=== PATIENT | female | born 1995 | race Caucasian/White ===

== ENCOUNTER 2020-01-30 23:48 | Emergency (ER) | payer OTHER, SELFPAY ==
--- NOTE | ~2020-01-30 | CT_ITS ---
EXAMINATION: CTA brain carotid EXAM DATE: 01/30/2020 22:22 INDICATION: Headache and right-sided neck pain. TECHNIQUE: Noncontrast head CT. Spiral CTA of the carotid arteries was performed with intravenous i njection 100 cc of Omnipaque 350. Axial, coronal, sagittal reformatted images reviewed. Additional r eformatted images created on dedicated 3-D workstation. NASCET comparable standard used to assess th e degree of arterial stenosis. Spiral CT angiogram cerebral arteries performed with the same intrave nous injection of contrast. Source images of the brain CTA transferred to dedicated workstation for 3 -D rotational image creation. Coronal, sagittal maximum intensity pixel images also reviewed. The d ose-length product (DLP) for this examination was 1579.53 mGy-cm. The exposure was tailored accordi ng to patient size, and iterative reconstruction (ASIR) was used as additional dose reduction techniq ue. There is no prior study for comparison. FINDINGS: The carotid arteries are normal. The vertebral arteries are codominant. There is no caroti d or vertebral basilar arterial dissection or fibromuscular dysplasia. There are no cerebral artery a neurysms. There is symmetric cerebral artery arborization. The sagittal, transverse and sigmoid sinus es enhance normally, no venous sinus thrombosis. Internal cerebral veins also enhance normally. There is no acute intraparenchymal hemorrhage. No evidence of intraparenchymal brain mass lesion. N o evidence of acute infarction. There is no mass effect or midline shift. There is no obstructive hyd rocephalus suspected. There are no extra-axial collections. There are no calvarial acute fractures. There are no areas of abnormal enhancement on the postcontrast images. Small left maxillary sinus mucous retention cyst. IMPRESSION: 1. No cervical arterial dissection or cerebral artery aneurysm. 2. Normal carotid arteries bilaterally. Reviewed, dictated and finalized at location A. SURGEON
[2020-01-30 21:03] VITALS: BP 121/57; PULSE 90; RESP 18; TEMP 37.4; O2SAT 99
[2020-01-30 21:20] LABS: Basophils Percent Auto 0.4 % (0.2-1.2); Eosinophils Absolute Auto 0.3 K/mm3 (0-0.3); Eosinophils Percent Auto 3.3 % (0-4.4); Hematocrit 38.3 % (37.0-47.0); Hemoglobin 13.3 g/dL (12.0-15.0); Immature Granulocyte Absolute 0.01 K/mm3 (0.00-0.031); Immature Granulocyte Percent A 0.1 % (0-0.5); Lymphocytes Absolute Auto 3.36 K/mm3 (0.9-3.2); Lymphocytes Percent Auto 36.2 % (18.3-44.2); Mean Corpuscular HGB Conc 34.7 g/dl (32-36); Mean Corpuscular Hemoglobin 30.6 pg (26-34); Mean Platelet Volume 10.1 fl (7.4-10.4); Monocytes Absolute Auto 0.7 K/mm3 (0.1-0.6); Neutrophils Absolute Auto 4.9 K/mm3 (1.3-6.7); Platelet Count Result 233 k/mm3 (150-375); Red Blood Count 4.35 M/mm3 (4.2-5.4); Red Cell Distribution Width 11.8 % (11.5-14.5); White Blood Count 9.3 K/mm3 (4.5-10.0)
[2020-01-30 21:32] LABS: Anion Gap 9 mmol/L (8-16); Blood Urea Nitrogen 16 mg/dL (7-17); Calcium 9.7 mg/dL (8.4-10.2); Carbon Dioxide 28 mmol/L (22-30); Chloride 103 mmol/L (98-107); Estimated CRCL calculation 77 ml/min; Estimated Glomerular Filt Rate > 60; Glucose 110 mg/dL (65-105); Potassium 3.8 mmol/L (3.4-5.0); Sodium 140 mmol/L (137-145)
--- NOTE | 2020-01-31 00:15 | ED.NECK ---
HPI - Neck Pain/Injury General Chief Complaint: Neck Pain/Injury Stated Complaint: neck pain after popping neck, lightheaded Time Seen by Provider: 01/30/20 23:55 Source: patient Mode of arrival: EMS Limitations: no limitations History of Present Illness HPI Narrative: This patient is a 24 year old female who presents for evaluation of right neck pain . She reports around 8 pm tonight she was popping her neck , and she developed severe right lateral posterior neck pain. She reports severe pain with turning her neck. She initially reported a headache with dizziness. She denies vomiting, numbness, tingling, blurred vision or focal weakness. She has not taken anything for pain. Related Data Allergies Allergy/AdvReac Type Severity Reaction Status Date / Time No Known Allergies Allergy Verified 01/30/20 21:11 Review of Systems Review of Systems: All systems reviewed & are unremarkable except as noted in HPI and below Constitutional: Constitutional: Denies chills and Denies fever(s) Eyes: Eyes: Denies change in vision Gastrointestinal: Gastrointestinal: Denies vomiting Neurologic: Denies vertigo, Reports headache(s), Denies focal weakness, Denies numbness and Denies weakness PMFSH Past Medical History Medical History (Updated 01/31/20 @ 01:27 by Jamilah Purcell MD) Patient denies medical problems Surgical History Surgical History (Updated 01/31/20 @ 00:24 by Jamilah Purcell MD) No significant past surgical history Social History Social History (Updated 01/31/20 @ 00:24 by Jamilah Purcell MD) Smoking status: Never smoker Gender identity (if verbalized by the patient): Female Exam Const: General: no acute distress and alert Orientation/consciousness: patient oriented x3 HENMT: Head: normocephalic and atraumatic Face and sinus: face symmetric Mouth: Yes Normal oral and palatal mucosa present, Yes lip normal and Yes oropharynx normal Eyes: Pupils: Equal, round and reactive pupils present EOM: EOMs intact bilaterally Neck: Neck: no lymphadenopathy and meningismus present Other: TTP along right trapezious, no swelling, she does has pain with turn neck Resp: Effort & Inspection: normal respiratory effort and no retractions Auscultation: clear to auscultation bilaterally Cardio: Rate: regular rate Rhythm: regular rhythm Heart sounds: no murmurs Back/Spine/Pelvis: Cervical Spine: cervical muscular tenderness, pain with cervical ROM and No Cervical spine tenderness Other: in c collar Skin: General skin exam: normal color Rashes: no rashes Neuro: General: patient oriented x3 and moves all extremities Extrem: General: normal to inspection Course Reevaluation(s) Reevaluation #1: PAtient reports she feels better. I discussed CT results are unremarkable. Date: 01/31/20 Time: 01:25 Vital Signs Vital signs: Vital Signs Temperature 99.3 F 01/30/20 21:03 Pulse Rate 90 01/30/20 21:03 Respiratory Rate 18 01/30/20 21:03 Blood Pressure 121/57 L 01/30/20 21:03 Pulse Oximetry 99 01/30/20 21:03 Temperature 99.3 F 01/30/20 21:03 Pulse Rate 82 01/31/20 01:45 Respiratory Rate 18 01/31/20 01:45 Blood Pressure 111/79 01/31/20 01:45 Pulse Oximetry 100 01/31/20 01:45 MDM - Neck Pain/Injury Lab Data Attestation: I reviewed the patient's lab results. Result diagrams: 01/30/20 21:10 01/30/20 21:10 Labs: Lab Results 01/30/20 01/30/20 Range/Units 21:10 21:10 WBC 9.3 (4.5-10.0) K/mm3 RBC 4.35 (4.2-5.4) M/mm3 Hgb 13.3 (12.0-15.0) g/dL Hct 38.3 (37.0-47.0) % MCV 88.0 (80-100) fl MCH 30.6 (26-34) pg MCHC 34.7 (32-36) g/dl RDW 11.8 (11.5-14.5) % Plt Count 233 (150-375) k/mm3 MPV 10.1 (7.4-10.4) fl Immature Gran % (Auto) 0.1 (0-0.5) % Neut % (Auto) 53.0 (45.5-73.1) % Lymph % (Auto) 36.2 (18.3-44.2) % Randall % (Auto) 7.0 (2.6-8.5) % Eos % (Auto) 3.3 (0-4.4) % Ba
[2020-01-31] MEDS: diazePAM (*CRX) 5 MG TABLET PO (00:28)
[2020-01-31] MEDS: KETOROLAC 30 MG/ML VIAL (*BKC) IV PUSH (00:28)
[2020-01-31 01:45] VITALS: BP 111/79; PULSE 82; RESP 18; O2SAT 100
== END 2020-01-31 01:47 | disposition home or self-care (01) ==
PROVIDERS: Emergency Medicine Emergency Medical Services; Emergency Provider General Practice
DX: S16.1XXA Strain of muscle, fascia and tendon at neck level, initial encounter (principal); X50.9XXA Other and unspecified overexertion or strenuous movements or postures, initial encounter
CPT/HCPCS: 36415; 70496; 70498; 80048; 85025; 96374; 99284; A9270; J1885; Q9967

== ENCOUNTER 2025-03-02 14:59 | Emergency (ER) | payer BC, SELFPAY ==
--- NOTE | ~2025-03-02 | US_ITS ---
US OB <=14 wk fetus w TV INDICATION:vaginal bleeding during COMPARISON: None. TECHNIQUE: transvaginal ultrasound of the pelvis was performed. FINDINGS: The uterus measures 9.2 x 4.2 x 5.4 cm. No intrauterine identified. The right ovary measures 1.9 x 1.5 x 1.9 cm. The left ovary measures 2.2 x 1.2 x 2 point cm. The ovaries are normal in appearance. No adnexal masses are seen. No pelvic fluid or mass is seen. IMPRESSION: No intrauterine identified. Correlation with beta-hCG and follow-up with key operator is recommended. Reviewed, dictated and finalized at location S. D DEVELOPMENT DIRECTOR IMPRESSION: No intrauterine identified. Correlation with beta-hCG and follow-up w [facility] key operator is recommended.
[2025-03-02 15:25] VITALS: BP 116/67; PULSE 76; RESP 16; TEMP 36.8; O2SAT 100
--- OUTSIDE RECORDS SUMMARY | 2025-03-02 17:42 | XMS_ITS | Clinical Summary ---
Author Organization [facility] Address [address] [place] [id number] Care Team Providers Care Vision Teacher Name Role Phone Unavailable Primary Care Provider Unavailabl e Social History Tobacco Use Types Packs/Day Years Used Date Smoking Tobacco: Never Assessed Comments Unknown Sex and Gender Information Value Date Recorded Sex Assigned at Not on file Legal Sex Female 8:08 PM CDT Gender Identity Not on file Sexual Orientation Not on file Last Filed Vital Signs Vital Sign Reading Time Taken Comments Blood Pressure 104/72 05/09/2015 3:24 PM ASSEMBLER CAMPER Pulse 85 05/09/2015 3:24 PM ASSEMBLER CAMPER Temperature - - Respiratory Rate - - Oxygen Saturation - - Inhaled Oxygen Concentration - - Weight 54.9 kg (121 lb) 05/09/2015 3:24 PM ASSEMBLER CAMPER Height 157.5 cm (5' 2) 09/23/2014 2:43 PM CDT Body Mass Index 22.13 09/23/2014 2:43 PM CDT Plan of Treatment Health Maintenance Due Date Last Done Comments Cervical Cancer Screening Pap Smear (Age 30 to 64) Every 3 Years 1994 Annual Physical 1997 DTaP, Tdap and Td Vaccines (6 - Tdap) 10/31/2007 10/30/2007, 04/18/1999, 02/11/1996, Additional history exists Hepatitis C 2012 HPV Vaccines (1 - 3-dose SCDM series) 2021 Cervical Cancer Screening Pap with HPV Testing (Age 30 to 64) Every 5 Years 2024 Cervical Cancer Screening with HPV 2024 COVID-19 Vaccine ( season) 2024 Influenza Adult (#1) 2024 04/19/2013, 11/14/20 12 Hepatitis B Vaccines Completed 05/12/1995, 01/07/1995, 1994 Meningococcal Vaccine Aged Out 01/29/2012 No haider fide eligible based on patient's age to complete this topic Hepatitis A Vaccines Aged Out No long er eligible based on patient's age to complete this topic Meningococcal B Vaccine Aged Out No l onger eligible based on patient's age to complete this topic Pneumococcal Vaccine: Pediatrics (0 to 5 Years) and At-Risk Patients (6 to 49 Years) Aged Out No longer eligible based on patient's age to complete this topic RSV Immunizations Under 20 Months Aged Out No longer eligible based on patient's age to complete this topic
--- NOTE | 2025-03-02 18:15 | ED_ITS ---
HPI - General Chief complaint: Vaginal Bleeding <Natividad Palencia APRN - Last Filed: 03/03/25 23:46> Stated complaint: 5 weeks preg, vaginal bleeding <Natividad Palencia APRN - Last Filed: 03/03/25 23:46> Time Seen by Provider: 03/02/25 18:15 <Natividad Palencia APRN - Last Filed: 03/03/25 23:46> Focused HPI: Patient is a 29-year-old female who presents to the ER with vaginal bleeding during . She reports she is approximately 5 weeks with her last menstrual period on February 03, 2025. Patient reports this is her 4th with 2 previous live births and 1 . Patient reports she has an appointment set up with her OBGYN but it is not until March 31, 2025. She denies any recent fevers, abdominal pain, burning/urgency with urination, back pain or constipation. GENERAL: Well-appearing, well-nourished, and in no acute distress. HEAD: Normocephalic, atraumatic. CHEST: Clear to auscultation. ?No respiratory distress. HEART: Regular rate and rhythm.? NEURO: ?Alert and oriented x3. Tearful Patient screened in triage and initial orders placed.? ?Additional care and disposition to be based upon?diagnostic testing and treatment. <Natividad Palencia APRN - Last Filed: 03/03/25 23:46> History of Present Illness HPI Narrative: Agree with above HPI. <CELSO Nielsen - Last Filed: 03/07/25 18:01> Related Data Allergies/Adverse reactions: Allergies Allergy/AdvReac Type Severity Reaction Status Date / Time No Known Allergies Allergy Verified 03/02/25 15:01 <Natividad Palencia APRN - Last Filed: 03/03/25 23:46> Review of Systems 2 Review of Systems: All systems reviewed & are unremarkable except as noted in HPI and below <CELSO Nielsen - Last Filed: 03/07/25 18:01> PMFSH Past Medical History Medical History: Medical History (Updated 03/03/25 @ 00:01 by Augusto Bill) Patient denies medical problems <Natividad Palencia APRN - Last Filed: 03/03/25 23:46> Surgical History Surgical History: Surgical History (Updated 01/31/20 @ 00:24 by Jamilah Purcell MD) No significant past surgical history <Natividad Palencia APRN - Last Filed: 03/03/25 23:46> Social History Social History: Social History (Updated 01/31/20 @ 00:24 by Jamilah Purcell MD) Smoking status: Never smoker Gender identity (if verbalized by the patient): Female <Natividad Palencia APRN - Last Filed: 03/03/25 23:46> Exam 2 Narrative: GENERAL: No acute distress. HEAD: Normocephalic, atraumatic. EYES: PERRLA and EOMI. ENT: Nares clear, no rhinorrhea or epistaxis. Mucous membranes moist. Oropharynx without tonsillar hypertrophy exudate or other lesions. Bilateral TMs pearly ruiz non-bulging NECK: Supple. No adenopathy or masses. No carotid bruits or JVD CHEST: Clear to auscultation. No respiratory distress. No wheezes rales or rhonchi HEART: Regular rate and rhythm. No murmur heard. Normal peripheral pulses. ABDOMEN: Soft, nontender, nondistended, normal active bowel sounds. EXTREMITIES: Normal range of motion. No edema. SKIN: Warm, dry, no rash. NEURO: No focal deficits. Alert and oriented x3. PSYCH: Normal mood and affect <CELSO Nielsen - Last Filed: 03/07/25 18:01> Discharge Plan Discharge Clinical Impression: Vaginal bleeding, Threatened <Natividad Palencia APRN - Last Filed: 03/03/25 23:46> Patient Disposition: Home <Natividad Palencia APRN - Last Filed: 03/03/25 23:46> Condition: Stable <Natividad Palencia APRN - Last Filed: 03/03/25 23:46> Instructions: Miscarriage (ED) <Natividad Palencia APRN - Last Filed: 03/03/25 23:46> Additional Instructions: Return to the ER if you are soaking through more than 2 large pads in one hour, if you feel lightheaded, weak, dizzy, develop chest pain/shortness of breath, or any other symptoms that are concerning to you. Follow-up closely with your OBGYN. Follow-up with your primary for other general concerns. <Natividad Palencia APRN - Last Filed: 03/03/25 23:46> Patient Language: Dominican <Natividad Palencia APRN - Last Filed: 03/03/25 23:46> Prescriptions: No Action cyclobenzaprine 10 mg tablet 10 mg PO TID PRN (Reason: muscle spasm) Qty: 10 0RF <Natividad Palencia APRN - Last Filed: 03/03/25 23:46> Follow-up/Referrals: UNKNOWN,DOCTOR [Non-Staff] <Natividad Palencia APRN - Last Filed: 03/03/25 23:46> Course Vital Signs Vital signs: Vital Signs Temperature 98.2 F 03/02/25 15:25 Pulse Rate 76 03/02/25 15:25 Respiratory Rate 16 03/02/25 15:25 Blood Pressure 116/67 03/02/25 15:25 Pulse Oximetry 100 03/02/25 15:25 Temperature 98.2 F 03/02/25 15:25 Pulse Rate 83 03/02/25 21:55 Respiratory Rate 18 03/02/25 21:55 Blood Pressure 101/58 L 03/02/25 21:55 Pulse Oximetry 100 03/02/25 21:55 <Natividad Palencia APRN - Last Filed: 03/03/25 23:46> Vital Signs Temperature 98.2 F 03/02/25 15:25 Pulse Rate 76 03/02/25 15:25 Respiratory Rate 16 03/02/25 15:25 Blood Pressure 116/67 03/02/25 15:25 Pulse Oximetry 100 03/02/25 15:25 Temperature 98.2 F 03/02/25 15:25 Pulse Rate 83 03/02/25 21:55 Respiratory Rate 18 03/02/25 21:55 Blood Pressure 101/58 L 03/02/25 21:55 Pulse Oximetry 100 03/02/25 21:55 <CELSO Nielsen - Last Filed: 03/07/25 18:01> MDM MDM Narrative Medical decision making narrative: Patient is a 29-year-old female who presents to the ER with vaginal bleeding during . She reports she is approximately 5 weeks with her last menstrual period on February 03, 2025. Patient reports this is her 4th with 2 previous live births and 1 . Patient reports she has an appointment set up with her OBGYN but it is not until March 31, 2025. She denies any recent fevers, abdominal pain, burning/urgency with urination, back pain or constipation. Patient's abdomen is soft without significant pain or signs of surgical abdomen on serial exams. Patient's bleeding is controlled currently in the ED. Stable labs. Quantitative beta hCG is minimally detectable and not consistent with a progressing . Further ED follow-up labs are therefore not indicated. Lab and US evaluations are reviewed and patient is felt to be a reasonable candidate for outpatient management. Patient was instructed as to limitations of US and laboratory evaluation and encouraged to return to ED or OFFICE RN for repeat exam in 12 hours if continued or worsening pain or bleeding. Discussed need for close follow-up with OFFICE RN. <CELSO Nielsen - Last Filed: 03/07/25 18:01> Differential Diagnosis Differential Diagnosis: Threatened miscarriage, urinary tract infection, vaginal bleeding during , intrauterine <Natividad Palencia APRN - Last Filed: 03/03/25 23:46> Medical Records I have reviewed the following patient records and this information was taken into consideration when formulating the assessment and plan.: previous labs and previous ER visits <CELSO Nielsen - Last Filed: 03/07/25 18:01> Lab Data [facility] Lab Attestation statement: I personally reviewed the patient's lab results. <CELSO Nielsen - Last Filed: 03/07/25 18:01> Result diagrams: 03/02/25 18:25 03/02/25 18: <Natividad Palencia APRN - Last Filed: 03/03/25 23:46> Labs: Lab Results 03/02/25 03/02/25 Range/Units 18:14 18: WBC 9.0 (4.5-10.0) K/mm3 RBC 4.47 (4.2-5.4) M/mm3 Hgb 13.5 (12.0-15.0) g/dL Hct 39.3 (37.0-47.0) % MCV 87.9 (80-100) fl MCH 30.2 (26-34) pg MCHC 34.4 (32-36) g/dl RDW 12.0 (11.5-14.5) % Plt Count 241 (150-375) k/mm3 MPV 9.9 (7.4-10.4) fl Immature Gran % (Auto) 0.3 (0-0.5) % Neut % (Auto) 57.5 (45.5-73.1) % Lymph % (Auto) 31.5 (18.3-44.2) % [place] % (Auto) 7.2 (2.6-8.5) % Eos % (Auto) 3.2 (0-4.4) % Baso % (Auto) 0.3 (0.2-1.2) % Lymph # (Auto) 2.83 (0.9-3.2) K/mm3 [place] # (Auto) 0.7 H (0.1-0.6) K/mm3 Eos # (Auto) 0.3 (0-0.3) K/mm3 Baso # (Auto) 0.0 (0.0-0.1) K/mm3 Abs Immat Gran (auto) 0.03 (0.00-0.031) K/mm3 Absolute Neuts (auto) 5.2 (1.3-6.7) K/mm3 Absolute Nucleated RBC 0.000 (0.0-0.012) K/mm3 Nucleated RBC % 0.0 (0.0-0.2) % PT 13.4 (11.1-14.7) Seconds INR 1.0 APTT 28.6 (22.3-36.8) Seconds Sodium 139 (137-145) mmol/L Potassium 3.8 (3.4-5.0) mmol/L Chloride 105 (98-107) mmol/L Carbon Dioxide 25 (22-30) mmol/L Anion Gap 9 (4-12) mmol/L BUN 12 (7-17) mg/dL Creatinine 0.79 (0.7-1.0) mg/dL Estim Creat Clear Calc 75 ml/min Estimated GFR > 60 (59 - ) Glucose 115 H (65-110) mg/dL Calcium 9.4 (8.4-10.2) mg/dL Total Bilirubin 0.7 (0.2-1.3) mg/dL AST 25 (14-36) U/L ALT 27 (6-35) U/L Alkaline Phosphatase 51 (38-126) U/L Total Protein 8.1 (6.3-8.2) g/dL Albumin 4.8 (3.5-5.1) g/dL Beta HCG, Quant 14.66 mIU/ML Urine Color Light red H (Yellow) Urine Appearance Sl cloudy (Clear) Urine pH 6.5 (5.0-9.0) Ur Specific [place] 1.015 (1.001-1.035) Urine Protein 3+ H (Negative) mg/dL Urine Glucose (UA) Negative (Negative) mg/dL Urine Ketones Negative (Negative) mg/dL Ur Blood (Man) 3+ H (Negative) Urine Nitrate Negative (Negative) Urine Bilirubin 1+ H (Negative) Urine Urobilinogen 0.2 (<2.0) mg/dL Leukocyte Esterase Rfl 2+ H (Negative) EMILY/UL Urine RBC >100 H (0-2) /hpf Urine WBC 6-10 H (0-3) /hpf Ur Squamous Epith Cells Few (Few) /hpf Urine Bacteria 2+ /hpf POC Urine HCG, Qual Negative (Negative) Blood Type B Positive Antibody Screen Negative Screen Not Reportable Baby's Blood Type Not Reportable Baby's JOHN Not Reportable Doses of RhIg Required 0 <Natividad Palencia, NARROW FABRIC CALENDERER - Last Filed: 03/03/25 23:46> Lab Results 03/02/25 03/02/25 Range/Units 18:14 18:25 WBC 9.0 (4.5-10.0) K/mm3 RBC 4.47 (4.2-5.4) M/mm3 Hgb 13.5 (12.0-15.0) g/dL Hct 39.3 (37.0-47.0) % MCV 87.9 (80-100) fl MCH 30.2 (26-34) pg MCHC 34.4 (32-36) g/dl RDW 12.0 (11.5-14.5) % Plt Count 241 (150-375) k/mm3 MPV 9.9 (7.4-10.4) fl Immature Gran % (Auto) 0.3 (0-0.5) % Neut % (Auto) 57.5 (45.5-73.1) % Lymph % (Auto) 31.5 (18.3-44.2) % [place] % (Auto) 7.2 (2.6-8.5) % Eos % (Auto) 3.2 (0-4.4) % Baso % (Auto) 0.3 (0.2-1.2) % Lymph # (Auto) 2.83 (0.9-3.2) K/mm3 [place] # (Auto) 0.7 H (0.1-0.6) K/mm3 Eos # (Auto) 0.3 (0-0.3) K/mm3 Baso # (Auto) 0.0 (0.0-0.1) K/mm3 Abs Immat Gran (auto) 0.03 (0.00-0.031) K/mm3 Absolute Neuts (auto) 5.2 (1.3-6.7) K/mm3 Absolute Nucleated RBC 0.000 (0.0-0.012) K/mm3 Nucleated RBC % 0.0 (0.0-0.2) % PT 13.4 (11.1-14.7) Seconds INR 1.0 APTT 28.6 (22.3-36.8) Seconds Sodium 139 (137-145) mmol/L Potassium 3.8 (3.4-5.0) mmol/L Chloride 105 (98-107) mmol/L Carbon Dioxide 25 (22-30) mmol/L Anion Gap 9 (4-12) mmol/L BUN 12 (7-17) mg/dL Creatinine 0.79 (0.7-1.0) mg/dL Estim Creat Clear Calc 75 ml/min Estimated GFR > 60 (59 - ) Glucose 115 H (65-110) mg/dL Calcium 9.4 (8.4-10.2) mg/dL Total Bilirubin 0.7 (0.2-1.3) mg/dL AST 25 (14-36) U/L ALT 27 (6-35) U/L Alkaline Phosphatase 51 (38-126) U/L Total Protein 8.1 (6.3-8.2) g/dL Albumin 4.8 (3.5-5.1) g/dL Beta HCG, Quant 14.66 mIU/ML Urine Color Light red H (Yellow) Urine Appearance Sl cloudy (Clear) Urine pH 6.5 (5.0-9.0) Ur Specific [place] 1.015 (1.001-1.035) Urine Protein 3+ H (Negative) mg/dL Urine Glucose (UA) Negative (Negative) mg/dL Urine Ketones Negative (Negative) mg/dL Ur Blood (Man) 3+ H (Negative) Urine Nitrate Negative (Negative) Urine Bilirubin 1+ H (Negative) Urine Urobilinogen 0.2 (<2.0) mg/dL Leukocyte Esterase Rfl 2+ H (Negative) EMILY/UL Urine RBC >100 H (0-2) /hpf Urine WBC 6-10 H (0-3) /hpf Ur Squamous Epith Cells Few (Few) /hpf Urine Bacteria 2+ /hpf POC Urine HCG, Qual Negative (Negative) Blood Type B Positive Antibody Screen Negative Screen Not Reportable Baby's Blood Type Not Reportable Baby's JOHN Not Reportable Doses of RhIg Required 0 <CELSO Nielsen - Last Filed: 03/07/25 18:01> Imaging Data Attestation: I personally reviewed and interpreted this imaging study as follows: < CELSO Nielsen - Last Filed: 03/07/25 18:01> Radiologist's impression: ITS Impressions Obstetrics Ultrasound 03/02/25 20:07 IMPRESSION: No intrauterine identified. Correlation with beta-hCG and follow-up with battery container tester is recommended. <Natividad Palencia APRN - Last Filed: 03/03/25 23:46> ITS Impressions Obstetrics Ultrasound 03/02/25 20:07 IMPRESSION: No intrauterine identified. Correlation with beta-hCG and follow-up with battery container tester is recommended. <CELSO Nielsen - Last Filed: 03/07/25 18:01>
[2025-03-02 18:34] LABS: Hematocrit 39.3 % (37.0-47.0); Hemoglobin 13.5 g/dL (12.0-15.0); Immature Granulocyte Percent A 0.3 % (0-0.5); Lymphocytes Absolute Auto 2.83 K/mm3 (0.9-3.2); Mean Corpuscular HGB Conc 34.4 g/dl (32-36); Mean Corpuscular Hemoglobin 30.2 pg (26-34); Mean Corpuscular Volume 87.9 fl (80-100); Nucleated Red Blood Cells Absolute Auto 0.000 K/mm3 (0.0-0.012); Nucleated Red Blood Cells Perc 0.0 % (0.0-0.2); Platelet Count Result 241 k/mm3 (150-375); Red Blood Count 4.47 M/mm3 (4.2-5.4); White Blood Count 9.0 K/mm3 (4.5-10.0)
[2025-03-02 18:45] LABS: Alanine Aminotransferase 27 U/L (6-35); Albumin Level 4.8 g/dL (3.5-5.1); Alkaline Phosphatase 51 U/L (38-126); Anion Gap 9 mmol/L (4-12); Aspartate Amino Transferase 25 U/L (14-36); Bilirubin,Total 0.7 mg/dL (0.2-1.3); Blood Urea Nitrogen 12 mg/dL (7-17); Calcium 9.4 mg/dL (8.4-10.2); Carbon Dioxide 25 mmol/L (22-30); Chloride 105 mmol/L (98-107); Estimated CRCL calculation 75 ml/min; Estimated Glomerular Filt Rate > 60; Glucose 115 mg/dL (65-110); Potassium 3.8 mmol/L (3.4-5.0); Sodium 139 mmol/L (137-145); Total Protein 8.1 g/dL (6.3-8.2)
[2025-03-02 18:46] LABS: INR 1.0; Prothrombin Time 13.4 Seconds (11.1-14.7)
[2025-03-02 18:47] LABS: Partial Thromboplastin Time 28.6 Seconds (22.3-36.8)
[2025-03-02 19:01] LABS: BEDSIDEPREGUCG Negative (Negative)
[2025-03-02 19:02] LABS: Beta HCG Quantitative 14.66 mIU/ML
[2025-03-02 19:03] LABS: Appearance Urine Sl Cloudy (Clear); Glucose Urine UA Negative (Negative); Leukocyte Esterase Ur 2+ LEU/UL (Negative); Nitrate Urine Negative (Negative); Specific Grav Ur 1.015 (1.001-1.035)
[2025-03-02 19:04] LABS: Add Urine Microscopic? YES
--- OUTSIDE RECORDS SUMMARY | 2025-03-02 19:57 | XMS_ITS | Clinical Summary ---
Author Organization [facility] Address [address] [place] [id number] Care Team Providers Care Scorekeeper Name Role Phone Unavailable Primary Care Provider [...] Comments Blood Pressure 104/72 05/09/2015 3:24 PM CARTON PACKAGING MACHINE OPERATOR Pulse 85 05/09/2015 3:24 PM CARTON PACKAGING MACHINE OPERATOR Temperature - - Respiratory Rate - - Oxygen Saturation - - Inhaled Oxygen Concentration - - Weight 54.9 kg (121 lb) 05/09/2015 3:24 PM CARTON PACKAGING MACHINE OPERATOR Height 157.5 cm (5' 2) 09/23/2014 2:43 [...]
[2025-03-02 21:55] VITALS: BP 101/58; PULSE 83; RESP 18; O2SAT 100
== END 2025-03-02 21:55 | disposition home or self-care (01) ==
PROVIDERS: Registered Nurse
DX: O20.0 Threatened abortion (principal); Z3A.01 Less than 8 weeks gestation of pregnancy
CPT/HCPCS: 36415; 76801; 76817; 80053; 81001; 81025; 84702; 85025; 85461; 85610; 85730; 86850; 86900; 86901; 87086; 99284